=== PATIENT | female | born 1950 | race Caucasian/White ===

== ENCOUNTER 2017-04-08 09:13 | Emergency (ER) | payer BC ==
[2017-04-08 10:00] VITALS: BP 121/73
--- NOTE | 2017-04-08 10:48 | UC ---
Throat Pain/Nasal Jose A HPI - HPI Summary HPI Summary: [employer] "c/o cold symptoms since . States this morning awoke with sinus pressure and pain. Is scheduled for hysteroscopy and D&C Sunday. " She is here with her dtr. has had sinus infection many yrs ago. has terrible pain over entire face, cheeks, teeth that started suddenly and severely today. no fevers known, but had APAP. APAP is not providing much relief. Denies cough or wheezing. - History of Current Complaint Chief Complaint: UCRespiratory Stated Complaint: SINUS Time Seen by Provider: 04/08/17 10:44 - Allergies/Home Medications Allergies/Adverse Reactions: Allergies Allergy/AdvReac Type Severity Reaction Status Date / Time Codeine Allergy See Comment Verified 04/08/17 09:53 Hornet Venom Allergy Anaphylatic Verified 04/08/17 09:53 Shock Home Medications: Home Medications Acetaminophen [Acetaminophen Extra Stren] 1,000 mg PO Q6H PRN 04/08/17 [History Confirmed 04/08/17] GuaiFENesin DM sugar free* [Robitussin DM sugar free*] 20 ml PO ONCE PRN [History Confirmed 04/08/17] PMH/Surg Hx/FS Hx/Imm Hx Previously Healthy: Yes Endocrine History: Diabetes - Surgical History Surgical History: Yes Surgery Procedure, Year, and Place: Gallbladder. T&A. Carpal Tunnel, right side. Ectopic pregancy removal - Family History Known Family History: Positive: Diabetes - Social History Alcohol Use: None Substance Use Type: None Smoking Status (MU): Never Smoked Tobacco - Immunization History Most Recent Influenza Vaccination: Fall 2016 Review of Systems Constitutional: Negative Skin: Negative Eyes: Negative ENT: Sinus Congestion, Sinus Pain/Tenderness Respiratory: Negative Cardiovascular: Negative Gastrointestinal: Negative Genitourinary: Negative Motor: Negative Neurovascular: Negative Musculoskeletal: Negative Neurological: Negative Psychological: Negative Is Patient Immunocompromised?: No All Other Systems Reviewed And Are Negative: Yes Physical Exam Triage Information Reviewed: Yes Appearance: Well-Appearing, Well-Nourished, Pain Distress Vital Signs: Initial Vital Signs Temp 98.4 F 04/08/17 09:55 Pulse 86 04/08/17 09:55 Resp 20 04/08/17 09:55 BP 121/73 04/08/17 09:55 Pulse Ox 100 04/08/17 09:55 Vital Signs Reviewed: Yes Eye Exam: Normal ENT Exam: Normal ENT: Positive: Pharyngeal erythema - +PND, no exudate, TMs normal, Sinus tenderness - B/L frontal & maxillary Dental Exam: Normal Neck exam: Normal Neck: Positive: Supple, Nontender, No Lymphadenopathy Respiratory Exam: Normal Respiratory: Positive: Lungs clear, Normal breath sounds, No respiratory distress, No accessory muscle use. Negative: Crackles, Rhonchi, Stridor, Wheezing Cardiovascular Exam: Normal Cardiovascular: Positive: RRR, No Murmur, Pulses Normal, Brisk Capillary Refill Abdominal Exam: Normal Abdomen Description: Positive: Nontender, Soft Musculoskeletal Exam: Normal Neurological Exam: Normal Psychological Exam: Normal Skin Exam: Normal Throat Pain/Nasal Course/Dx - Course Course Of Treatment: significant pain w/ sudden onset. scheduled for procedure in 5 days. will treat w/ abx. netti pot & flonase recommended as well - Differential Dx/Diagnosis Differential Diagnosis/HQI/PQRI: Pharyngitis, Sinusitis, URI Provider Diagnoses: Sinusitis Discharge - Discharge Plan Condition: Stable Disposition: HOME Prescriptions: Amoxicillin PO (*) [Amoxicillin 875 MG (*)] 875 mg PO BID #20 tab Patient Education Materials: Sinusitis (ED) Referrals: Lukas JAUREGUI,Akhil Jaffe [Primary Care Provider] - Additional Instructions: Make sure to continue taking the probiotic while on the antibiotic. -we talked about avoiding all NSAIDs due to diabetes history. -make sure to check with the surgeon scheduled to perform your surgery regarding these sx and your diagnosis.
== END 2017-04-08 11:15 | disposition home or self-care (01) ==
LOC: UCCORT 09:13
DX: J32.9 Chronic sinusitis, unspecified (principal); E11.9 Type 2 diabetes mellitus without complications; Z88.5 Allergy status to narcotic agent
CPT/HCPCS: 99212; G0463

== ENCOUNTER 2017-09-09 08:45 | Emergency (ER) | payer BC, MEDICARE ==
[2017-09-09 09:04] VITALS: BP 134/78
--- NOTE | 2017-09-09 12:18 | UC ---
Complaint Female HPI - HPI Summary HPI Summary: woke this morning and noted burning urination, blood in urine, malaise and nausea. - History Of Current Complaint Chief Complaint: UCGU Stated Complaint: URINARY Time Seen by Provider: 09/09/17 09:21 Hx Obtained From: Patient ?: No Onset/Duration: Lasting Hours Timing: Constant Severity Initially: Mild Severity Currently: Mild Pain Intensity: 0 Pain Scale Used: 0-10 Numeric Character: Burning Aggravating Factor(s): Urination Alleviating Factor(s): Other Associated Signs And Symptoms: Positive: Nausea - Allergies/Home Medications Allergies/Adverse Reactions: Allergies Allergy/AdvReac Type Severity Reaction Status Date / Time hornet venom Allergy Severe Anaphylatic Verified 09/09/17 09:10 Shock codeine Allergy See Comment Verified 09/09/17 09:09 Home Medications: Home Medications SitaGLIPtin (NF) [Januvia (NF)] 100 mg PO 09/09/17 [History] Tumeric 500 mg PO DAILY 09/09/17 [History] metFORMIN* [Glucophage 1000 MG TAB *] 1,000 mg PO BID 09/09/17 [History Confirmed 09/09/17] PMH/Surg Hx/FS Hx/Imm Hx Endocrine History: Diabetes GI/ History: Other Other GI/ History: ibs - Surgical History Surgical History: Yes Surgery Procedure, Year, and Place: Gallbladder. T&A. Carpal Tunnel, right side. Ectopic pregancy removal - Family History Known Family History: Positive: None, Diabetes - Social History Alcohol Use: None Substance Use Type: None Smoking Status (MU): Never Smoked Tobacco - Immunization History Most Recent Influenza Vaccination: Fall 2016 Review of Systems Constitutional: Negative Skin: Negative ENT: Negative Respiratory: Negative Cardiovascular: Negative Gastrointestinal: Nausea Genitourinary: Dysuria, Hematuria, Urgency Musculoskeletal: Negative Neurological: Negative Psychological: Negative Is Patient Immunocompromised?: No All Other Systems Reviewed And Are Negative: Yes Physical Exam Triage Information Reviewed: Yes Appearance: Well-Appearing, No Pain Distress, Well-Nourished Vital Signs: Initial Vital Signs Temp 98.1 F 09/09/17 08:59 Pulse 76 09/09/17 08:59 Resp 18 09/09/17 08:59 BP 134/78 09/09/17 08:59 Pulse Ox 100 09/09/17 08:59 Vital Signs Reviewed: Yes Eyes: Positive: Conjunctiva Clear. Negative: Discharge ENT Exam: Normal ENT: Positive: Hearing grossly normal. Negative: Muffled voice, Hoarse voice Neck exam: Normal Neck: Positive: Supple Respiratory: Positive: Lungs clear, Normal breath sounds, No respiratory distress, No accessory muscle use Cardiovascular: Positive: RRR, No Murmur Abdomen Description: Positive: Nontender, Soft. Negative: CVA Tenderness (R), CVA Tenderness (L), Distended, Guarding, Hepatomegaly, McBurney's Point Tenderness Bowel Sounds: Positive: Present Musculoskeletal Exam: Normal Neurological: Positive: Alert, Muscle Tone Normal Psychological: Positive: Age Appropriate Behavior Skin Exam: Normal Complaint Female Dx - Differential Dx/Diagnosis Provider Diagnoses: uti, hematuria Discharge - Sign-Out/Discharge Documenting (check all that apply): Discharge/Admit/Transfer - Discharge Plan Condition: Stable Disposition: HOME Prescriptions: Sulfamethox/Trimethoprim DS* [Bactrim DS 800/160 TAB*] 1 tab PO BID #6 tab Patient Education Materials: Urinary Tract Infection in Women (ED), Hematuria ( ED) Referrals: Lukas JAUREGUI,Akhil Jaffe [Primary Care Provider] - (FOLLOW UP IN 2 DAYS IF NOT IMPROVING. OTHERWISE FOLLOW UP IN 2 WEEKS ON BLOOD IN URINE.) Additional Instructions: ANTIBIOTIC THERAPY: You have been given an antibiotic prescription. It's important that you take all the medication, unless instructed otherwise by your physician. Failure to complete the entire course can result in relapse of your condition. Common side effects of antibiotics include nausea, intestinal cramping, or diarrhea. Women may develop vaginal yeast infections, and babies can get yeast (thrush) in the mouth following the use of antibiotics. Contact your physician if you develop significant side effects from this medication. Allergy to this antibiotic can result in hives, wheezing, faintness, or itching. If symptoms of allergy occur, stop the medication and call the doctor. ANYTIME YOU TAKE AN ANTIBIOTIC, IT IS IMPORTANT TO REPLENISH THE BODY'S SUPPLY OF "GOOD BACTERIA." YOU CAN GET GOOD BACTERIA FROM HIGH QUALITY CULTURED FOODS SUCH LOCAL YOGURT, SOUR KRAUT, [employer], NATURALLY FERMENTED PICKLES AND PROBIOTIC DRINKS. YOU CAN ALSO GET GOOD BACTERIA FROM A PROBIOTIC SUPPLEMENT. - Billing Disposition and Condition Condition: STABLE Disposition: HOME
== END 2017-09-09 10:04 | disposition home or self-care (01) ==
LOC: UCCORT 08:45
DX: N39.0 Urinary tract infection, site not specified (principal); R31.9 Hematuria, unspecified; Z88.5 Allergy status to narcotic agent; Z91.038 Other insect allergy status; E11.9 Type 2 diabetes mellitus without complications; Z79.84 Long term (current) use of oral hypoglycemic drugs
CPT/HCPCS: 81003; 87086; 99212; G0463